=== PATIENT | male | born 1995 | race Caucasian/White ===

== ENCOUNTER 2024-09-08 17:36 | Emergency (ER) | payer MEDICAID ==
[~2024-09-08] VITALS: Ht 182.9 cm; Wt 114.3 kg
[~2024-09-08 17:36] MED LIST: BUPR150T2 PO; CEPH500 PO; CODACE30 PO; CRUTCH4 USE; HYDACE5 PO; IBUP600 PO; Mobic15 MG PO; Norco 5-325 Ta1 EACH PO; ONDA8ODT MM; Percocet 5-3251 EACH PO; TRAZ150T57 PO; ZOLP10 PO; Zofran Odt4 MG SL
[2024-09-08 17:46] VITALS: BP 153/105
[2024-09-08] MEDS ORDERED: Diphth,Pertuss(Acell),Tet Vac 0.5 ML VIAL IM ONE (17:50)
[2024-09-08] MEDS ORDERED: Ibuprofen 600 MG Tab PO ONE (17:50)
== END 2024-09-08 19:16 | disposition home or self-care (01) ==
LOC: ER 17:36
DX: S61.210A Laceration without foreign body of right index finger without damage to nail, initial encounter (principal); Z88.0 Allergy status to penicillin; W26.0XXA Contact with knife, initial encounter
CPT/HCPCS: 73130; 90715; A9270